=== PATIENT | male | born 1975 | race Caucasian/White ===

== ENCOUNTER 2018-10-18 10:53 | Emergency (ER) | payer MEDICAID ==
[2018-10-18] MEDS: CIPROFLOXACIN 400MG/D5W 200 ML IVPB (12:02)
[2018-10-18] MEDS: ONDANSETRON 4 MG INJ IV (12:02)
[2018-10-18] MEDS: morphine 4 MG/ML VIAL IV (12:03)
[2018-10-18 12:16] LABS: ADD MAN DIFF? NO
[2018-10-18 12:17] LABS: BASOPHILS % 0.3 % (0.0-2.0); EOSINOPHILS # 0.2 10^3/ul (0.0-0.5); EOSINOPHILS % 2.1 % (0.0-7.0); HEMATOCRIT 45.2 % (42.0-52.0); HEMOGLOBIN 15.5 g/dl (14.0-18.0); LYMPHOCYTES # 2.9 10^3/ul (0.8-2.9); LYMPHOCYTES % 31.9 % (15.0-51.0); MEAN CORPUSCULAR HEMOGLOBIN 29.5 pg (29.0-33.0); MEAN CORPUSCULAR HGB CONC 34.3 g/dl (32.0-37.0); MEAN CORPUSCULAR VOLUME 85.9 fl (82.0-101.0); MEAN PLATELET VOLUME 10.2 fl (7.4-10.4); MONOCYTE # 0.8 10^3/ul (0.3-0.9); MONOCYTES % 8.6 % (0.0-11.0); NEUTROPHIL # 5.1 10^3/ul (1.6-7.5); NEUTROPHILS % 56.8 % (39.0-77.0); PLATELET COUNT 281 10^3/UL (140-415); RED BLOOD COUNT 5.26 10^6/ul (4.70-6.10); RED CELL DISTRIBUTION WIDTH 12.4 % (11.5-14.5)
[2018-10-18 12:36] LABS: ALANINE AMINOTRANSFERASE 36 IU/L (13-69); ALBUMIN 4.9 g/dl (3.3-4.9); ALBUMIN/GLOBULIN RATIO 1.36; ALKALINE PHOSPHATASE 78 IU/L (42-121); ANION GAP 11 (5-13); ASPARTATE AMINO TRANSFERASE 32 IU/L (15-46); BILIRUBIN,INDIRECT 0.4 mg/dl (0-1.1); BILIRUBIN,TOTAL 0.4 mg/dl (0.2-1.3); BLOOD UREA NITROGEN 10 mg/dl (7-20); CALCIUM 9.4 mg/dl (8.4-10.2); CARBON DIOXIDE 25 mmol/L (21-31); CHLORIDE 105 mmol/L (97-110); CREATININE 0.69 mg/dl (0.61-1.24); Estimated GFR > 60 mL/min (>60); GLUCOSE 98 mg/dl (70-220); POTASSIUM 4.3 mmol/L (3.5-5.1); SODIUM 141 mmol/L (135-144); TOTAL PROTEIN 8.5 g/dl (6.1-8.1)
== END 2018-10-18 14:15 | disposition home or self-care (01) ==
LOC: FTE 10:53
DX: H66.91 Otitis media, unspecified, right ear (principal)
CPT/HCPCS: 36415; 70480; 80053; 85025; 87040; 96365; 96375; 99285-25

== ENCOUNTER 2019-05-14 10:21 | Emergency (ER) | payer MEDICAID ==
[2019-05-14] MEDS ORDERED: KETOROLAC 30 MG INJ IM (12:29)
[2019-05-14] MEDS: HYDROCODONE/APAP (10/325) TAB PO (12:36)
== END 2019-05-14 14:00 | disposition home or self-care (01) ==
LOC: FTE 10:21
DX: S39.012A Strain of muscle, fascia and tendon of lower back, initial encounter (principal); R07.81 Pleurodynia; V49.49XA Driver injured in collision with other motor vehicles in traffic accident, initial encounter
CPT/HCPCS: 71045; 72100; 99284-25